=== PATIENT | male | born 1975 | race Caucasian/White ===

== ENCOUNTER → 2017-03-12 | Outpatient (CLI) | payer OTHER ==
--- NOTE | 2017-03-12 14:40 | DIAGNOSTIC IMAGING REPORT ---
RIGHT KNEE 3 VIEWS CLINICAL HISTORY: RIGHT KNEE PAIN Right pain COMPARISON: None. DISCUSSION: The bones and joint spaces appear intact. There is no evidence of fracture, dislocation or bony disease. Mild chondrocalcinosis. Small osteophyte projecting from the superior patella. IMPRESSION: Mild degenerative change. Chondrocalcinosis. Electronically signed by: Jamison Beckham M.D. 03/12/2017 2:39 PM Dictated Date/Time: 03/12/2017 2:38 PM
== END | disposition home or self-care (01) ==
LOC: C.RAD1850 14:22
PROVIDERS: ATTEND Nurse Practitioner Adult Health
DX: M25.561 Pain in right knee (principal)

== ENCOUNTER 2021-12-05 10:52 | Inpatient (IN) ==
[2021-12-05] MEDS ORDERED: SODIUM CHLORIDE 0.9% 500 ML IV STA (11:10)
[2021-12-05 11:29] LABS: Basophils # (auto) 0.03 K/uL (0-0.2); Basophils % (auto) 0.2 %; Eosinophils # (auto) 0.07 K/uL (0-0.5); Eosinophils % (auto) 0.4 %; Hematocrit (blood only) 47.3 % (42-52); Hemoglobin 16.4 g/dL (14.0-18.0); Immature Granulocytes # (auto) 0.06 K/uL (0.00-0.02); Immature Granulocytes % (auto) 0.3 %; Lymphocytes # (auto) 2.49 K/uL (1.2-3.4); Lymphocytes % (auto) 12.6 %; Mean Corpuscular Hgb Conc 34.7 g/dL (32-36); Mean Corpuscular Volume 92.4 fL (80-100); Mean Platelet Volume 10.1 fL (7.4-10.4); Monocytes # (auto) 1.35 K/uL (0.11-0.59); Monocytes % (auto) 6.8 %; Neutrophils # (auto) 15.71 K/uL (1.4-6.5); Neutrophils % (auto) 79.7 %; Platelet Count 223 K/uL (130-400); RDW Coefficient of Variation 13.4 % (11.5-14.5); RDW Standard Deviation 45.6 fL (36.4-46.3); Red Blood Count 5.12 M/uL (4.7-6.1); White Blood Count 19.71 K/uL (4.8-10.8)
--- NOTE | 2021-12-05 11:33 | Emergency Department Note ---
History of Present Illness General Chief complaint: Abdominal Pain Stated complaint: ABDOM PAIN Time Seen by Provider: 12/05/21 11:09 History of Present Illness Maximum Pain Intensity: 6 46-year-old male presents to the ED with a chief complaint of left lower quadrant abdominal pain. The symptoms started 6 PM yesterday evening and was gradual in onset and worsened through the day. The patient does state that he was shoveling snow earlier in the day. The patient states that his pain is constant and feels like he did 1000 sit ups. The patient states that it seems to be worse with cough and movement. Denies nausea, vomiting or diarrhea. No surgical history. Past Med/Surg History Social History Smoking Status: Current every day smoker Feels Safe at Home: Yes Review of Systems A total of 10 systems reviewed and were otherwise negative Physical Exam Vital Signs Vital Signs - 24 hr 12/05/21 10:59 12/05/21 11:12 12/05/21 11:23 Temperature 36.7 C Temperature Source Temporal Artery Scan Pulse Rate 101 H 96 H Pulse Rate from SpO2 Sensor 94 H Pulse Rhythm Regular Pulse Strength Normal Respiratory Rate 20 Respiratory Effort / Characteristics Non-Labored Spontaneous Respiratory Depth Normal Respiratory Pattern Regular Blood Pressure 131/86 Blood Pressure Mean 101 Blood Pressure Position Sitting Pulse Oximetry 97 96 97 Oxygen Delivery Method Room Air Room Air Oxygen Flow Rate 0 Sepsis Recent Fever Within 48 Hours No Sepsis New/Unexplained Change in Mental Status N/A Sepsis Action Taken by Nursing No Action Required 12/05/21 11:30 12/05/21 12:00 12/05/21 12:48 Temperature Temperature Source Pulse Rate 82 82 Pulse Rate from SpO2 Sensor 83 82 82 Pulse Rhythm Pulse Strength Respiratory Rate Respiratory Effort / Characteristics Respiratory Depth Respiratory Pattern Blood Pressure 133/90 143/95 H Blood Pressure Mean 104 111 Blood Pressure Position Pulse Oximetry 97 97 97 Oxygen Delivery Method Oxygen Flow Rate Sepsis Recent Fever Within 48 Hours Sepsis New/Unexplained Change in Mental Status Sepsis Action Taken by Nursing 12/05/21 12:51 12/05/21 13:00 Temperature Temperature Source Pulse Rate 82 Pulse Rate from SpO2 Sensor 82 81 Pulse Rhythm Pulse Strength Respiratory Rate Respiratory Effort / Characteristics Respiratory Depth Respiratory Pattern Blood Pressure 130/86 124/84 Blood Pressure Mean 100 97 Blood Pressure Position Pulse Oximetry 97 97 Oxygen Delivery Method Oxygen Flow Rate Sepsis Recent Fever Within 48 Hours Sepsis New/Unexplained Change in Mental Status Sepsis Action Taken by Nursing CONSTITUTIONAL/VITAL SIGNS: Reviewed / noted above. GENERAL: Non-toxic in appearance. INTEGUMENTARY: Warm, dry, and [place]. HEAD: Normocephalic. EYES: without scleral icterus or trauma. ENT/OROPHARYNX: clear and moist. LYMPHADENOPATHY/NECK: Is supple without lymphadenopathy or meningismus. RESPIRATORY: Clear to auscultation bilaterally. No increased work of breathing. CARDIOVASCULAR: Regular rate and rhythm. GI/ABDOMEN: Soft and tender in the bilateral lower abdomen left greater than right. Palpable hernia in the left inguinal region with increased intra- abdominal pressure reduces spontaneously. No organomegaly or pulsatile mass. EXTREMITIES: Warm and well perfused. BACK: No CVA tenderness. NEUROLOGICAL: Intact without focal deficits. PSYCHIATRIC: normal affect. MUSCULOSKELETAL: Normally developed with good muscle tone. TRIAGE NURSING DOCUMENTATION REVIEWED. Course Administered Medications Discontinued Medications Sodium Chloride (Nss) 500 mls @ 999 mls/hr IV .Q31M STA Stop: 12/05/21 11:40 Last Infusion: 12/05/21 12:22 Dose: 0 mls/hr Documented by: [id number] Admin: 12/05/21 11:18 Dose: 999 mls/hr Documented by: [id number] Piperacillin Sod/Tazobactam Sod (Zosyn) 4.5 gm in 120 mls @ 240 mls/hr IV NOW ONE Stop: 12/05/21 13:31 Last Admin: 12/05/21 13:11 Dose: 240 mls/hr Documented by: [id number] Ioversol (Optiray 320 100ml) 95 ml IV ONCE ONE Stop: 12/05/21 12:33 Last Admin: 12/05/21 12:32 Dose: 95 ml Documented by: [id number] Medical Decision Making Differential Diagnosis Differential considered: pancreatitis, hepatitis, acute cholecystitis, AAA, UTI, pyelonephritis, kidney stones, appendicitis, diverticulitis, shingles, bowel obstruction, mesenteric ischemia, intussusception,hernia, testicular torsion. Medical Records Attestation: I reviewed the patient's medical records. Home Medications Current Medication List: was personally reviewed by me Laboratory Data Attestation: I reviewed the patient's lab results. Result diagrams: 12/05/21 11:20 12/05/21 11:20 Lab Results 0312/05/21 12/05/21 Range/Units 11:20 11:20 13:00 WBC 19.71 H (4.8-10.8) K/uL RBC 5.12 (4.7-6.1) M/uL Hgb 16.4 (14.0-18.0) g/dL Hct 47.3 (42-52) % MCV 92.4 (80-100) fL MCH 32.0 (25-34) pg MCHC 34.7 (32-36) g/dL RDW Std Deviation 45.6 (36.4-46.3) fL RDW Coeff of Conrad 13.4 (11.5-14.5) % Plt Count 223 (130-400) K/uL MPV 10.1 (7.4-10.4) fL Immature Gran % (Auto) 0.3 % Neut % (Auto) 79.7 % Lymph % (Auto) 12.6 % Davison % (Auto) 6.8 % Eos % (Auto) 0.4 % Baso % (Auto) 0.2 % Neut # (Auto) 15.71 H (1.4-6.5) K/uL Lymph # (Auto) 2.49 (1.2-3.4) K/uL Davison # (Auto) 1.35 H (0.11-0.59) K/uL Eos # (Auto) 0.07 (0-0.5) K/uL Baso # (Auto) 0.03 (0-0.2) K/uL Immature Gran # (Auto) 0.06 H (0.00-0.02) K/uL Sodium 135 L (136-145) mmol/L Potassium 4.0 (3.5-5.1) mmol/L Chloride 103 (98-107) mmol/L Carbon Dioxide 26 (21-32) mmol/L Anion Gap 6 (3-11) BUN 11 (6-23) mg/dl Creatinine 0.79 (0.6-1.4) mg/dl Est Cr Clr Drug Dosing 131.0 ml/min Est GFR ( Amer) 124.8 ml/min Est GFR (Non-Af Amer) 107.7 ml/min BUN/Creatinine Ratio 13.9 (10-20) Glucose 101 H (70-99(Fasting)) mg/dl Calcium 9.4 (8.5-10.1) mg/dl Total Bilirubin 1.0 (0.2-1.0) mg/dl AST 15 (13-39) U/L ALT 24 (7-52) U/L Alkaline Phosphatase 55 (34-104) U/L Total Protein 6.9 (6.0-8.3) gm/dl Albumin 4.3 (3.4-5.0) gm/dl Globulin 2.6 (2.5-4.0) gm/dl Albumin/Globulin Ratio 1.7 (0.9-2) Lipase 14 (11-82) U/L Urine Color Yellow Urine Appearance Clear (Clear) Urine pH 6.5 (4.5-7.5) Ur Specific [place] 1.012 (1.000-1.030) Urine Protein Negative (Negative) Urine Glucose (UA) Negative (Negative) Urine Ketones Negative (Negative) Urine Blood Negative (Negative) Urine Nitrite Negative (Negative) Urine Bilirubin Negative (Negative) Urine Urobilinogen Negative (Negative) Ur Leukocyte Esterase Negative (Negative) SARS-CoV-2, RNA, NAAT (NEGATIVE) 12/05/21 Range/Units 13:26 WBC (4.8-10.8) K/uL RBC (4.7-6.1) M/uL Hgb (14.0-18.0) g/dL Hct (42-52) % MCV (80-100) fL MCH (25-34) pg MCHC (32-36) g/dL RDW Std Deviation (36.4-46.3) fL RDW Coeff of Conrad (11.5-14.5) % Plt Count (130-400) K/uL MPV (7.4-10.4) fL Immature Gran % (Auto) % Neut % (Auto) % Lymph % (Auto) % Davison % (Auto) % Eos % (Auto) % Baso % (Auto) % Neut # (Auto) (1.4-6.5) K/uL Lymph # (Auto) (1.2-3.4) K/uL Davison # (Auto) (0.11-0.59) K/uL Eos # (Auto) (0-0.5) K/uL Baso # (Auto) (0-0.2) K/uL Immature Gran # (Auto) (0.00-0.02) K/uL Sodium (136-145) mmol/L Potassium (3.5-5.1) mmol/L Chloride (98-107) mmol/L Carbon Dioxide (21-32) mmol/L Anion Gap (3-11) BUN (6-23) mg/dl Creatinine (0.6-1.4) mg/dl Est Cr Clr Drug Dosing ml/min Est GFR ( Amer) ml/min Est GFR (Non-Af Amer) ml/min BUN/Creatinine Ratio (10-20) Glucose (70-99(Fasting)) mg/dl Calcium (8.5-10.1) mg/dl Total Bilirubin (0.2-1.0) mg/dl AST (13-39) U/L ALT (7-52) U/L Alkaline Phosphatase (34-104) U/L Total Protein (6.0-8.3) gm/dl Albumin (3.4-5.0) gm/dl Globulin (2.5-4.0) gm/dl Albumin/Globulin Ratio (0.9-2) Lipase (11-82) U/L Urine Color Urine Appearance (Clear) Urine pH (4.5-7.5) Ur Specific [place] (1.000-1.030) Urine Protein (Negative) Urine Glucose (UA) (Negative) Urine Ketones (Negative) Urine Blood (Negative) Urine Nitrite (Negative) Urine Bilirubin (Negative) Urine Urobilinogen (Negative) Ur Leukocyte Esterase (Negative) SARS-CoV-2, RNA, NAAT NEGATIVE (NEGATIVE) Imaging Data Radiologist's Impression: Abdomen/Pelvis CT 12/05/21 11:10 CT abd pelvis IV con only CLINICAL HISTORY: llq pain TECHNIQUE: Helical axial images of the abdomen and pelvis were obtained and displayed. Automated dose lowering techniques and/or adjustment according to patient size were utilized for this exam. This exam was performed with intravenous contrast. COMPARISON: None available at the time of this dictation. FINDINGS: Lower chest: Bibasilar atelectasis versus scarring is seen. Liver: Unremarkable. No focal lesions are seen. Gallbladder and biliary tree: No calcified gallstones. Normal caliber wall. No intra- or extrahepatic biliary ductal dilation. Pancreas: Unremarkable, no focal lesions. Spleen: Splenule is incidentally noted. Adrenals: Unremarkable. Kidneys and ureters: Unremarkable. Bladder: Unremarkable. Reproductive organs: Unremarkable. Bowel: Diverticula are seen in the colon. There is fat stranding or wall thickening in the sigmoid colon. No surrounding abscess is seen, however there are foci of air in the surrounding peritoneal fat. Lymph nodes Retroperitoneal: Subcentimeter lymph nodes are noted. Mesenteric: Unremarkable. Pelvic: Unremarkable. Peritoneum: Apart from the focus in the left lower quadrant, there is no distant pneumoperitoneum. Vessels: Atherosclerotic calcifications are seen. Abdominal wall: Left fat containing inguinal hernia. A fat-containing umbilical hernia is seen. Bones: Degenerative changes in the visualized spine. IMPRESSION: Findings are compatible with acute perforated diverticulitis with foci of air contained within the left lower quadrant mesentery. ACT 112: Negative or not required by law. Electronically signed by: Kishan Holguin M.D. 12/05/2021 12:56 PM MDM Narrative Patient presents with left lower quadrant abdominal pain that started yesterday evening as detailed above. Exam reveals some tenderness in the pelvis and lower quadrants left greater than right. Does have a self reducing hernia in the left inguinal region. CT scan of the abdomen pelvis shows a perforated diverticulitis. White blood cell count is 19,000. Chemistry panel was unremarkable. The patient did not need anything for the pain. He was given some IV fluids and IV Zosyn. He will be seen by the hospitalist for further inpatient evaluation and care. I spoke with the hospitalist about the patient. They will see the patient for admission. I also spoke with Wayne Alicea from general surgery. They will consult. Impression & Plan Diverticulitis of colon with perforation Discharge Plan Visit Data Chief Complaint: Abdominal Pain Stated Complaint: ABDOM PAIN ED Provider: Hermelindo Mac Discharge Problem: Diverticulitis of colon with perforation Patient Disposition: Being Evaluated by Hospitalist Forms Stand Alone Forms: [facility] Referrals Referrals: PCP,NO [Physician] -
[2021-12-05 11:53] LABS: Albumin Globulin Ratio 1.7 (0.9-2); Albumin Level 4.3 gm/dl (3.4-5.0); BUN Creatinine Ratio 13.9 (10-20); Calcium 9.4 mg/dl (8.5-10.1); Est GFR (African American) 124.8 ml/min; Est GFR (Non-African American) 107.7 ml/min; Globulin 2.6 gm/dl (2.5-4.0); Total Protein 6.9 gm/dl (6.0-8.3)
[2021-12-05] MEDS ORDERED: OPTIRAY 320 100ml IV ONE (12:32)
--- NOTE | 2021-12-05 12:57 | CT Scan Report ---
CT abd pelvis IV con only CLINICAL HISTORY: llq pain TECHNIQUE: Helical axial images of the abdomen and pelvis were obtained and displayed. Automated dose lowering techniques and/or adjustment according to patient size were utilized for this exam. This e xam was performed with intravenous contrast. COMPARISON: None available at the time of this dictation. FINDINGS: Lower chest: Bibasilar atelectasis versus scarring is seen. Liver: Unremarkable. No focal lesions are seen. Gallbladder and biliary tree: No calcified gallstones. Normal caliber wall. No intra- or extrahepatic biliary ductal dilation. Pancreas: Unremarkable, no focal lesions. Spleen: Splenule is incidentally noted. Adrenals: Unremarkable. Kidneys and ureters: Unremarkable. Bladder: Unremarkable. Reproductive organs: Unremarkable. Bowel: Diverticula are seen in the colon. There is fat stranding or wall thickening in the sigmoid co katheryn. No surrounding abscess is seen, however there are foci of air in the surrounding peritoneal fat. Lymph nodes Retroperitoneal: Subcentimeter lymph nodes are noted. Mesenteric: Unremarkable. Pelvic: Unremarkable. Peritoneum: Apart from the focus in the left lower quadrant, there is no distant pneumoperitoneum. Vessels: Atherosclerotic calcifications are seen. Abdominal wall: Left fat containing inguinal hernia. A fat-containing umbilical hernia is seen. Bones: Degenerative changes in the visualized spine. IMPRESSION: Findings are compatible with acute perforated diverticulitis with foci of air contained within the le ft lower quadrant mesentery. ACT 112: Negative or not required by law. Electronically signed by: Kishan Holguin M.D. 12/05/2021 12:56 PM
[2021-12-05] MEDS ORDERED: PIPERACILLIN/TAZOBACTAM 4.5 GM/120 ML BAG IV ONE (13:02)
[2021-12-05] MEDS ORDERED: PIPERACILL/TAZOBAC CONSULT ACTIVE PRN ×2 (13:02→17:00)
[2021-12-05 13:22] LABS: Appearance Urine Clear (Clear); Bilirubin Urine Negative (Negative); Blood Urine Negative (Negative); Color Urine Yellow; Glucose Urine UA Negative (Negative); Ketones Urine Negative (Negative); Leukocyte Esterase Urine Negative (Negative); Nitrite Urine Negative (Negative); Protein Urine Negative (Negative); Specific Gravity Urine 1.012 (1.000-1.030); Urobilinogen Urine Negative (Negative); pH Urine 6.5 (4.5-7.5)
--- NOTE | 2021-12-05 14:13 | Surgery Consultation ---
Date of Consultation December 05, 2021 Assessment & Plan (1) Diverticulitis of colon with perforation: No acute abdominal findings. Agree with Zosyn, keep NPO for at least next 24 hours. Will continue to follow, hopefully can avoid surgery. History of Present Illness History of Present Illness 46 y/o male developed LLQ pain last evening rather acutely. No previous pain, bloating, surgery or diverticulitis. Pain continued this morning, came to ED. Had normal BM yesterday. No fevers or chills. Allergies Allergy/AdvReac Type Severity Reaction Status Date / Time No Known Allergies Allergy Verified 12/05/21 14:10 Home Medications Medication Instructions Recorded Confirmed Type atenolol 50 mg tablet 50 mg PO DAILY 12/05/21 12/05/21 History ibuprofen 200 mg tablet 400 mg PO QAM 12/05/21 12/05/21 History lisinopril 20 mg tablet 20 mg PO DAILY 12/05/21 12/05/21 History multivitamin 1 tab PO QAM 12/05/21 12/05/21 History Patient History Medical History HTN (hypertension) Tobacco abuse Surgical History History of open reduction and internal fixation (ORIF) procedure L ankle Family History Father Hypertension Diabetes Mother Hypertension Social History Smoking Status: Current every day smoker Tobacco Type: Cigarettes packs per day: 1; Years Smoked: 30; Do You Dip or Chew Tobacco: No; Tobacco Cessation Education Requested by Patient: No Hx Alcohol Use: Yes Alcohol type: beer Alcohol Intake Frequency: 2-3 x/Week Hx Substance Use: No Preferred Language: [place] marital status: Feels Safe at Home: Yes Review of Systems Constitutional: no fever, no chills, no malaise and no anorexia Respiratory: no cough and no dyspnea Cardiovascular: no chest pain and no chest pain with activity Gastrointestinal: + abdominal pain and + bloating; no nausea, no vomiting, no change in bowel habits, no change in stools, no constipation, no diarrhea/loose stools and no blood in stools Physical Exam Constitutional: WD/WN, vitals as above Respiratory: normal respiratory effort, lungs clear to auscultation Cardiovascular: RRR, no murmur, no edema Gastrointestinal (Abdomen): Inspection/Auscultation: + abdomen distended (slight) and + visible herniation (umbilical) Percussion/Palpation: + abdomen tender (LLQ), + guarding and abdomen soft Skin: no rashes, warm and dry Results & Data ([facility]) Vital Signs (Past 12 Hours) Vital Signs Temp Pulse Resp BP Pulse Ox 12/05/21 13:30 81 19 132/88 98 12/05/21 13:00 82 124/84 97 12/05/21 12:51 130/86 97 12/05/21 12:48 97 12/05/21 12:00 82 143/95 H 97 12/05/21 11:30 82 133/90 97 12/05/21 11:23 97 12/05/21 11:12 96 H 96 12/05/21 10:59 36.7 C 101 H 20 131/86 97 PG Care Time/CCT Total # of Minutes Spent Total Time Spent with Patient: Total time spent is greater than 50% in coordination of care (as documented) at patient's floor/unit and/or counseling patient: Coding Level of Care Code 17310 Office/OBS Consult Lvl 3 Diagnoses Diverticulitis of colon with perforation K57.20
--- NOTE | 2021-12-05 14:18 | History & Physical Report ---
Date of Service December 05, 2021 Assessment & Plan (1) Diverticulitis of colon with perforation: (2) HTN (hypertension): (3) Tobacco abuse: Plan: Acute sigmoid diverticulitis with perforation Left lower quadrant abdominal pain Leukocytosis Admit to medical General surgery Conservative measures with bowel rest, IV fluids Strict NPO IV morphine 4 mg every 4 hours as needed severe pain, avoid narcs as much as possible will schedule IV APAP while strict NPO will need OP colonoscopy in 6-8 weeks post infection HTN hold atenolol and lisinopril while strict NPO when starting clears will resume Tobacco abuse smoking cessation pt declines nicotine patch DVT ppx: SQ Lovenox Dispo: med/surg FULL CODE Pt was seen and examined in collaboration with Dr. Cruz, please see addendum Pt , Melody wishes to be called with updates if she is not at bedside due to patient having a hard time hearing. Melody #[phone] History of Present Illness Chief Complaint: LLQ abd pain x 1 day. Primary Care Provider: Jama Yadav MD This is a 46-year-old male who has significant past medical history of HTN and tobacco abuse who presents to ED secondary to abdominal pain x1 day. Last evening he was making supper when he developed left lower quadrant abdominal pain. Pain persistently worsened over the course of the night. He tried ibuprofen without relief. He has never had similar symptoms in the past. He denies any associated fever, nausea, vomiting, diarrhea, constipation, melena or hematochezia. He has never had a colonoscopy before. He states his bowel habits are usually not regular as he occasionally does have looser stool. He describes the pain as a, "deep ache." Pain gets worse with coughing or movement and is made better with with lying still. His is at bedside. He currently denies any associated fever, chills, sweats, lightheadedness, dizziness, syncope, chest pain, shortness of breath, URI symptoms, dysuria, increased urgency or frequency with urination, hematuria. He does admit to having Covid approximately 1 month ago. He was fully vaccinated boosted as well. In ED patient remained hemodynamically stable. He did have leukocytosis with WBC of 19.7 1K. His CMP was generally unremarkable. His urinalysis was negative. CT abdomen pelvis reveal acute perforated diverticulitis with foci of air contained within the left lower quadrant mesentery. He received IV fluids and IV Zosyn in ED. Patient's [facility] record in [facility] was reviewed. His home medication list was obtained through [facility]. His past medical history, surgical history and family history was also obtained through [facility]. Was confirmed with patient Allergies Allergy/AdvReac Type Severity Reaction Status Date / Time No Known Allergies Allergy Verified 12/05/21 14:10 Home Medications Medication Instructions Recorded Confirmed Type atenolol 50 mg tablet 50 mg PO DAILY 12/05/21 12/05/21 History ibuprofen 200 mg tablet 400 mg PO QAM 12/05/21 12/05/21 History lisinopril 20 mg tablet 20 mg PO DAILY 12/05/21 12/05/21 History multivitamin 1 tab PO QAM 12/05/21 12/05/21 History Past Med/Surg History Medical History HTN (hypertension) Tobacco abuse Surgical History History of open reduction and internal fixation (ORIF) procedure L ankle Family History Father Hypertension Diabetes Mother Hypertension Social History (Updated 12/05/21 @ 14:08 by Yvonne Holly PA-C) Smoking Status: Current every day smoker Tobacco Type: Cigarettes packs per day: 1; Years Smoked: 30; Do You Dip or Chew Tobacco: No; Tobacco Cessation Education Requested by Patient: No Hx Alcohol Use: Yes Alcohol type: beer Alcohol Intake Frequency: 2-3 x/Week Hx Substance Use: No Preferred Language: Sami marital status: Feels Safe at Home: Yes Review of Systems Review of Systems: All systems reviewed & are unremarkable except as noted in HPI & below Physical Exam Physical Exam: Constitutional: WD/WN, vitals as above, NAD, sitting up in bed, pleasant, conversing easily Head: Normocephalic, Atraumatic Eyes: PERRL, conjunctivae normal, anicteric sclerae ENMT: external ear and nose normal, oropharynx normal Neck: trachea midline, no thyromegaly normal visual inspection Respiratory: normal respiratory effort, lungs clear to auscultation, no wheeze, rales, rhonchi. Normal insp/exp effort, no accessory muscle use Cardiovascular: RRR, no murmur, no edema Vessels: no JVD or carotid bruit Chest: normal inspection of chest Abdomen: normal bowel sounds, soft, tender to light palpation left lower quadrant, positive rebound and guarding, no hepatosplenomegaly Musculoskeletal: no cyanosis or clubbing, extremities motor strength 5/5 Skin: no rashes, warm and dry normal turgor Neurologic: PERRL, EOMI, accommodation nl, no face palsy, no dysarthria CN's II-XI intact bilaterally and moves all extremities Psychiatric: A+Ox3, euthymic affect Lymphatic: no cervical or axillary lymphadenopathy : deferred Results & Data Results & Data ([facility]) Vital Signs (Past 12 Hours) Vital Signs Temp Pulse Resp BP Pulse Ox 12/05/21 13:30 81 19 132/88 98 12/05/21 13:00 82 124/84 97 12/05/21 12:51 130/86 97 12/05/21 12:48 97 12/05/21 12:00 82 143/95 H 97 12/05/21 11:30 82 133/90 97 12/05/21 11:23 97 12/05/21 11:12 96 H 96 12/05/21 10:59 36.7 C 101 H 20 131/86 97 Diagnostic Findings Abdomen/Pelvis CT 12/05/21 11:10 CT abd pelvis IV con only CLINICAL HISTORY: llq pain TECHNIQUE: Helical axial images of the abdomen and pelvis were obtained and displayed. Automated dose lowering techniques and/or adjustment according to patient size were utilized for this exam. This exam was performed with intravenous contrast. COMPARISON: None available at the time of this dictation. FINDINGS: Lower chest: Bibasilar atelectasis versus scarring is seen. Liver: Unremarkable. No focal lesions are seen. Gallbladder and biliary tree: No calcified gallstones. Normal caliber wall. No intra- or extrahepatic biliary ductal dilation. Pancreas: Unremarkable, no focal lesions. Spleen: Splenule is incidentally noted. Adrenals: Unremarkable. Kidneys and ureters: Unremarkable. Bladder: Unremarkable. Reproductive organs: Unremarkable. Bowel: Diverticula are seen in the colon. There is fat stranding or wall thickening in the sigmoid colon. No surrounding abscess is seen, however there are foci of air in the surrounding peritoneal fat. Lymph nodes Retroperitoneal: Subcentimeter lymph nodes are noted. Mesenteric: Unremarkable. Pelvic: Unremarkable. Peritoneum: Apart from the focus in the left lower quadrant, there is no distant pneumoperitoneum. Vessels: Atherosclerotic calcifications are seen. Abdominal wall: Left fat containing inguinal hernia. A fat-containing umbilical hernia is seen. Bones: Degenerative changes in the visualized spine. IMPRESSION: Findings are compatible with acute perforated diverticulitis with foci of air contained within the left lower quadrant mesentery. ACT 112: Negative or not required by law. Electronically signed by: Kishan Holguin M.D. 12/05/2021 12:56 PM Medications Administered Medication List Discontinued Medications Sodium Chloride (Nss) 500 mls @ 999 mls/hr IV .Q31M STA Stop: 12/05/21 11:40 Last Infusion: 12/05/21 12:22 Dose: 0 mls/hr Documented by: [id number] Admin: 12/05/21 11:18 Dose: 999 mls/hr Documented by: [id number] Piperacillin Sod/Tazobactam Sod (Zosyn) 4.5 gm in 120 mls @ 240 mls/hr IV NOW ONE Stop: 12/05/21 13:31 Last Admin: 12/05/21 13:11 Dose: 240 mls/hr Documented by: [id number] Ioversol (Optiray 320 100ml) 95 ml IV ONCE ONE Stop: 12/05/21 12:33 Last Admin: 12/05/21 12:32 Dose: 95 ml Documented by: [id number] COVID-19 Results Results COVID-19 Adm Lab Results: RBC 5.12 M/uL (4.7-6.1) 12/05/21 WBC 19.71 K/uL (4.8-10.8) H 12/05/21 Hgb 16.4 g/dL (14.0-18.0) 12/05/21 Hct 47.3 % (42-52) 12/05/21 Plt Count 223 K/uL (130-400) 12/05/21 Neutrophils (%) (Auto) 79.7 % 12/05/21 Lymphocytes (%) (Auto) 12.6 % 12/05/21 Monocytes # (Auto) 1.35 K/uL (0.11-0.59) H 12/05/21 Eosinophils # (Auto) 0.07 K/uL (0-0.5) 12/05/21 Immature Granulocyte % (Auto) 0.3 % 12/05/21 Neutrophils # (Auto) 15.71 K/uL (1.4-6.5) H 12/05/21 Lymphocytes # (Auto) 2.49 K/uL (1.2-3.4) 12/05/21 Monocytes # (Auto) 1.35 K/uL (0.11-0.59) H 12/05/21 Eosinophils # (Auto) 0.07 K/uL (0-0.5) 12/05/21 Basophils # (Auto) 0.03 K/uL (0-0.2) 12/05/21 Immature Granulocyte # (Auto) 0.06 K/uL (0.00-0.02) H 12/05/21 Na 135 mmol/L (136-145) L 12/05/21 K 4.0 mmol/L (3.5-5.1) 12/05/21 Cl 103 mmol/L (98-107) 12/05/21 CO2 26 mmol/L (21-32) 12/05/21 Anion Gap 6 (3-11) 12/05/21 BUN 11 mg/dl (6-23) 12/05/21 Creatinine 0.79 mg/dl (0.6-1.4) 12/05/21 BUN/Creatinine Ratio 13.9 (10-20) 12/05/21 Glucose Level 101 mg/dl (70-99(Fasting)) H 12/05/21 Ca 9.4 mg/dl (8.5-10.1) 12/05/21 Total Bilirubin 1.0 mg/dl (0.2-1.0) 12/05/21 AST/SGOT 15 U/L (13-39) 12/05/21 ALT/SGPT 24 U/L (7-52) 12/05/21 Alkaline Phosphatase 55 U/L (34-104) 12/05/21 Total Protein 6.9 gm/dl (6.0-8.3) 12/05/21 Albumin 4.3 gm/dl (3.4-5.0) 12/05/21 Globulin 2.6 gm/dl (2.5-4.0) 12/05/21 Albumin/Globulin Ratio 1.7 (0.9-2) 12/05/21 SARS-CoV-2, RNA, NAAT NEGATIVE (NEGATIVE) 12/05/21 Code Status & VTE Plan Code Status FULL CODE VTE Prophylaxis Plan VTE Prophylaxis will be ordered: Yes Supervising Physician Co-Signing Physician Notes Attending addendum The patient was seen and examined in emergency room in presence of the He has been complaining of severe abdominal pain since last night Has had feverish feeling with some abdominal discomfort before severe pain Has been complaining of pain in the emergency room and the pain is worse with movement and with coughing On examination Lying in with bed very anxious Hemodynamically stable Chestclear to auscultate bilaterally HeartS1-S2, regular Abdomendistended, soft, mildly tender all over and tenderness with guarding and rigidity involving the left lower quadrant Extremitiesnegative for any edema CNSalert, awake and oriented x3 His admission labs, EKG and imaging studies reviewed Has perforated sigmoid diverticulitis Surgery consulted and recommended conservative management for now Intravenous antibiotics have been started Agree with assessment and plan as outlined above by Yvonne cruz
[2021-12-05] MEDS ORDERED: MoRPHine SULFATE 2 MG/ML CARP ONE (15:24)
[2021-12-05] MEDS ORDERED: ONDANSETRON INJ 2 MG/ML 2 ML VIAL IV PRN (17:00)
[2021-12-05] MEDS ORDERED: MoRPHine SULFATE 4 MG/ML 1 ML CARP\\VIAL IV PRN (17:00)
[2021-12-05] MEDS: LACTATED RINGER'S 1,000 ML IV SCH (17:13)
[2021-12-05] MEDS: ACETAMINOPHEN 1,000 MG/100 ML VIAL IV SCH (17:45)
[2021-12-05] MEDS: PIPERACILLIN/TAZOBACTAM 3.375 GM in DEXTROSE 5% 100 ML IV SCH (18:14)
[2021-12-05] MEDS ORDERED: Flu Vaccine (Fluarix) 0.5mL SYR (Standard Dose) IM ONE (18:45)
[2021-12-06] MEDS: LACTATED RINGER'S 1,000 ML IV SCH ×3 (01:31→17:42)
[2021-12-06] MEDS: PIPERACILLIN/TAZOBACTAM 3.375 GM in DEXTROSE 5% 100 ML IV SCH ×3 (01:31→17:44)
[2021-12-06] MEDS: ACETAMINOPHEN 1,000 MG/100 ML VIAL IV SCH ×3 (01:31→17:40)
[2021-12-06 06:26] LABS: Basophils # (auto) 0.02 K/uL (0-0.2); Basophils % (auto) 0.2 %; Eosinophils # (auto) 0.12 K/uL (0-0.5); Hematocrit (blood only) 43.9 % (42-52); Hemoglobin 14.8 g/dL (14.0-18.0); Immature Granulocytes # (auto) 0.02 K/uL (0.00-0.02); Immature Granulocytes % (auto) 0.2 %; Lymphocytes # (auto) 2.44 K/uL (1.2-3.4); Mean Corpuscular Hemoglobin 31.8 pg (25-34); Mean Corpuscular Hgb Conc 33.7 g/dL (32-36); Mean Corpuscular Volume 94.2 fL (80-100); Mean Platelet Volume 10.2 fL (7.4-10.4); Monocytes # (auto) 0.88 K/uL (0.11-0.59); Monocytes % (auto) 7.2 %; Neutrophils # (auto) 8.73 K/uL (1.4-6.5); Neutrophils % (auto) 71.4 %; Platelet Count 184 K/uL (130-400); RDW Coefficient of Variation 13.8 % (11.5-14.5); RDW Standard Deviation 47.4 fL (36.4-46.3); Red Blood Count 4.66 M/uL (4.7-6.1); White Blood Count 12.21 K/uL (4.8-10.8)
[2021-12-06 07:16] LABS: Albumin Globulin Ratio 1.4 (0.9-2); Albumin Level 3.6 gm/dl (3.4-5.0); Calcium 8.9 mg/dl (8.5-10.1); Creatinine Clr Calc Pharmacy 114.9 ml/min; Est GFR (African American) 118.3 ml/min; Est GFR (Non-African American) 102.1 ml/min; Globulin 2.5 gm/dl (2.5-4.0); Magnesium 2.1 mg/dl (1.7-2.4); Potassium 3.8 mmol/L (3.5-5.1); Total Protein 6.1 gm/dl (6.0-8.3)
--- NOTE | 2021-12-06 10:16 | Surgery Progress Note ---
Date of Service December 06, 2021 Assessment & Plan (1) Diverticulitis of colon with perforation: Plan: conservative management for now. improving. wbc improving. afebrile. continue NPO another [address] Ferguson covering for weekend. (2) HTN (hypertension): (3) Tobacco abuse: Admission and Anticipated Discharge Date Admission Date: December 05, 2021 Subjective pt seen. feeling somewhat better than yesterday. no new complaints. Physical Exam Constitutional: WD/WN, vitals as above no acute distress and not ill appearing Eyes: PERRL, conjunctivae normal, anicteric sclerae EOM intact bilaterally ENMT: external ear and nose normal, oropharynx normal Ears: no hearing impairment Neck: trachea midline, no thyromegaly Respiratory: normal respiratory effort; no respiratory distress and does not use accessory muscles Cardiovascular: Rate/Rhythm: regular rate and regular rhythm Gastrointestinal (Abdomen): soft. +LLQ ttp. +left inguinal hernia. +umbilical hernia. no peritoneal signs. Skin: no rashes, warm and dry Psychiatric: Orientation: alert, oriented x 3 and cooperative Results & Data ([facility]) Vital Signs (Past 12 Hours) Vital Signs Temp Pulse Pulse Resp BP Pulse Ox 12/06/21 07:45 36.8 C 83 16 138/88 93 12/05/21 22:38 37.0 C 82 15 120/78 92 PG Care Time/CCT Total # of Minutes Spent Total Time Spent with Patient: Total time spent is greater than 50% in coordination of care (as documented) at patient's floor/unit and/or counseling patient: Coding Level of Care Code 93430 Subseq Hosp Care Lvl 3 Diagnoses Diverticulitis of colon with perforation K57.20 HTN (hypertension) I10 Tobacco abuse Z72.0
--- NOTE | 2021-12-06 14:37 | Hospitalist Progress Note ---
Date of Service December 06, 2021 Assessment & Plan (1) Diverticulitis of colon with perforation: (2) HTN (hypertension): (3) Tobacco abuse: Plan: Acute sigmoid diverticulitis with perforation --CT ABD:indings are compatible with acute perforated diverticulitis with foci of air contained within the left lower quadrant mesentery. Continue IV Zosyn, IV fluids N.p.o. for now Appreciate surgery input Pain control HTN hold atenolol and lisinopril while NPO Monitor BP Tobacco abuse smoking cessation pt declines nicotine patch DVT px: SQ Lovenox Code Status FULL CODE Admission and Anticipated Discharge Date Admission Date: December 05, 2021 Subjective Seen and examined at bedside States having abdominal pain which is controlled with meds Denies any nausea, vomiting, chest pain, shortness breath, dizziness Offers no other complaints Review of Systems 2 Review of Systems: All systems reviewed & are unremarkable except as noted in Subjective Physical Exam Physical Exam: Physical Exam: Vitals signs as noted above General Appearance:Moderately built and nourished, no apparent distress Head: normocephalic, Atraumatic Eyes: normal inspection, EOMI Neck: supple, Trachea midline Respiratory/Chest: Normal breath sounds, CTA, No accessory muscle use Cardiovascular: S1, S2, No murmur Abdomen/GI:Soft, left lower quadrant tender, left inguinal hernia, Bowel sounds present Extremities/Musculoskeletal:normal inspection, no edema Neurologic/Psych:AAOX3, grossly no focal neurological deficits Skin: normal color, warm Results & Data Results & Data ([facility]) Vital Signs (Past 12 Hours) Vital Signs Temp Pulse Resp BP Pulse Ox 12/06/21 07:45 36.8 C 83 16 138/88 93 Laboratory Results Short CBC 12/06/21 Range/Units 05:49 WBC 12.21 H (4.8-10.8) K/uL Hgb 14.8 (14.0-18.0) g/dL Hct 43.9 (42-52) % Plt Count 184 (130-400) K/uL BMP 12/06/21 05:49 Sodium 137 Potassium 3.8 Chloride 104 Carbon Dioxide 29 BUN 9 Creatinine 0.90 Glucose 97 Calcium 8.9 Liver Function 12/06/21 Range/Units 05:49 Total Bilirubin 1.0 (0.2-1.0) mg/dl AST 10 L (13-39) U/L ALT 15 (7-52) U/L Alkaline Phosphatase 44 (34-104) U/L Albumin 3.6 (3.4-5.0) gm/dl
[2021-12-07] MEDS: PIPERACILLIN/TAZOBACTAM 3.375 GM in DEXTROSE 5% 100 ML IV SCH ×3 (01:19→17:11)
[2021-12-07] MEDS: ACETAMINOPHEN 1,000 MG/100 ML VIAL IV SCH ×3 (01:20→17:10)
[2021-12-07] MEDS: LACTATED RINGER'S 1,000 ML IV SCH ×3 (05:40→15:58)
[2021-12-07 07:18] LABS: Basophils # (auto) 0.03 K/uL (0-0.2); Basophils % (auto) 0.2 %; Eosinophils # (auto) 0.14 K/uL (0-0.5); Eosinophils % (auto) 1.1 %; Hematocrit (blood only) 44.3 % (42-52); Immature Granulocytes # (auto) 0.04 K/uL (0.00-0.02); Immature Granulocytes % (auto) 0.3 %; Lymphocytes # (auto) 1.86 K/uL (1.2-3.4); Lymphocytes % (auto) 15.2 %; Mean Corpuscular Hgb Conc 33.9 g/dL (32-36); Mean Corpuscular Volume 94.5 fL (80-100); Mean Platelet Volume 10.2 fL (7.4-10.4); Monocytes # (auto) 0.88 K/uL (0.11-0.59); Monocytes % (auto) 7.2 %; Neutrophils # (auto) 9.25 K/uL (1.4-6.5); Platelet Count 206 K/uL (130-400); RDW Coefficient of Variation 13.5 % (11.5-14.5); RDW Standard Deviation 46.9 fL (36.4-46.3); Red Blood Count 4.69 M/uL (4.7-6.1)
[2021-12-07 07:45] LABS: Albumin Globulin Ratio 1.4 (0.9-2); Albumin Level 3.7 gm/dl (3.4-5.0); BUN Creatinine Ratio 10.7 (10-20); Bilirubin,Total 0.9 mg/dl (0.2-1.0); Calcium 8.1 mg/dl (8.5-10.1); Creatinine Clr Calc Pharmacy 137.9 ml/min; Est GFR (African American) 127.5 ml/min; Globulin 2.6 gm/dl (2.5-4.0); Potassium 3.8 mmol/L (3.5-5.1); Total Protein 6.3 gm/dl (6.0-8.3)
--- NOTE | 2021-12-07 10:53 | Surgery Progress Note ---
Date of Service December 07, 2021 Assessment & Plan (1) Diverticulitis of colon with perforation: Plan: wbc stable at 12, afebrile. can start clears, decrease IVF continue Zosyn seen with Dr. Ferguson (2) HTN (hypertension): (3) Tobacco abuse: Admission and Anticipated Discharge Date Admission Date: December 05, 2021 Subjective some flatus, no BM, less pain Physical Exam Gastrointestinal (Abdomen): Inspection/Auscultation: abdomen not distended Percussion/Palpation: + abdomen tender (mild LLQ) and abdomen soft; no guarding Results & Data ([facility]) Vital Signs (Past 12 Hours) Vital Signs Temp Pulse Resp BP Pulse Ox 12/07/21 07:31 36.7 C 88 18 150/96 H 96 PG Care Time/CCT Total # of Minutes Spent Total Time Spent with Patient: Total time spent is greater than 50% in coordination of care (as documented) at patient's floor/unit and/or counseling patient: Coding Level of Care Code 42843 Subseq Hosp Care Lvl 1 Diagnoses Diverticulitis of colon with perforation K57.20 HTN (hypertension) I10 Tobacco abuse Z72.0
--- NOTE | 2021-12-07 16:12 | Hospitalist Progress Note ---
Date of Service December 07, 2021 Assessment & Plan (1) Diverticulitis of colon with perforation: (2) HTN (hypertension): (3) Tobacco abuse: Plan: Acute sigmoid diverticulitis with perforation --CT ABD:indings are compatible with acute perforated diverticulitis with foci of air contained within the left lower quadrant mesentery. Continue IV Zosyn, IV fluids Appreciate surgery input Pain control Started on clear liquid diet HTN Resume atenolol and lisinopril Monitor BP Tobacco abuse smoking cessation pt declines nicotine patch DVT px: SQ Lovenox Code Status FULL CODE Admission and Anticipated Discharge Date Admission Date: December 05, 2021 Subjective Patient is seen and examined at bedside Abdominal pain slowly improving Tolerating clear liquid diet Denies any nausea, vomiting, chest pain, shortness breath, dizziness No other complaints Review of Systems Review of Systems: All systems reviewed & are unremarkable except as noted in Subjective Physical Exam Physical Exam: Physical Exam: Vitals signs as noted above General Appearance:Moderately built and nourished, no apparent distress Head: normocephalic, Atraumatic Eyes: normal inspection, EOMI Neck: supple, Trachea midline Respiratory/Chest: Normal breath sounds, CTA, No accessory muscle use Cardiovascular: S1, S2, No murmur Abdomen/GI:Soft, left lower quadrant mild tender, left inguinal hernia, Bowel sounds present Extremities/Musculoskeletal:normal inspection, no edema Neurologic/Psych:AAOX3, grossly no focal neurological deficits Skin: normal color, warm Results & Data Results & Data ([facility]) Vital Signs (Past 12 Hours) Vital Signs Temp Pulse Resp BP Pulse Ox 12/07/21 07:31 36.7 C 88 18 150/96 H 96 Laboratory Results Short CBC 12/07/21 Range/Units 06:45 WBC 12.20 H (4.8-10.8) K/uL Hgb 15.0 (14.0-18.0) g/dL Hct 44.3 (42-52) % Plt Count 206 (130-400) K/uL BMP 12/07/21 06:45 Sodium 137 Potassium 3.8 Chloride 103 Carbon Dioxide 26 BUN 8 Creatinine 0.75 Glucose 81 Calcium 8.1 L Liver Function 12/07/21 Range/Units 06:45 Total Bilirubin 0.9 (0.2-1.0) mg/dl AST 11 L (13-39) U/L ALT 15 (7-52) U/L Alkaline Phosphatase 48 (34-104) U/L Albumin 3.7 (3.4-5.0) gm/dl
[2021-12-07] MEDS: lisinopril 20 MG TAB PO SCH (17:35)
[2021-12-07] MEDS: ATENOLOL 50 MG TABLET PO SCH (17:35)
[2021-12-08] MEDS: PIPERACILLIN/TAZOBACTAM 3.375 GM in DEXTROSE 5% 100 ML IV SCH ×2 (04:01→09:31)
[2021-12-08] MEDS: ACETAMINOPHEN 1,000 MG/100 ML VIAL IV SCH ×2 (04:02→09:32)
[2021-12-08] MEDS ORDERED: COUGH DROP (SUGAR FREE) LOZ 24 LOZ/1 BOX BUCCAL ONE (04:10)
[2021-12-08 05:46] LABS: Basophils # (auto) 0.02 K/uL (0-0.2); Basophils % (auto) 0.2 %; Eosinophils # (auto) 0.25 K/uL (0-0.5); Eosinophils % (auto) 2.7 %; Hematocrit (blood only) 40.5 % (42-52); Hemoglobin 13.8 g/dL (14.0-18.0); Immature Granulocytes # (auto) 0.02 K/uL (0.00-0.02); Immature Granulocytes % (auto) 0.2 %; Lymphocytes # (auto) 2.09 K/uL (1.2-3.4); Lymphocytes % (auto) 22.8 %; Mean Corpuscular Hemoglobin 31.9 pg (25-34); Mean Corpuscular Hgb Conc 34.1 g/dL (32-36); Mean Corpuscular Volume 93.5 fL (80-100); Monocytes # (auto) 0.84 K/uL (0.11-0.59); Monocytes % (auto) 9.2 %; Neutrophils # (auto) 5.94 K/uL (1.4-6.5); Neutrophils % (auto) 64.9 %; Platelet Count 237 K/uL (130-400); RDW Coefficient of Variation 13.3 % (11.5-14.5); Red Blood Count 4.33 M/uL (4.7-6.1); White Blood Count 9.16 K/uL (4.8-10.8)
[2021-12-08] MEDS: LACTATED RINGER'S 1,000 ML IV SCH (05:52)
[2021-12-08 06:12] LABS: BUN Creatinine Ratio 7.5 (10-20); Calcium 8.8 mg/dl (8.5-10.1); Creatinine Clr Calc Pharmacy 154.4 ml/min; Est GFR (African American) 133.6 ml/min; Est GFR (Non-African American) 115.2 ml/min
[2021-12-08] MEDS: ATENOLOL 50 MG TABLET PO SCH (08:13)
[2021-12-08] MEDS: lisinopril 20 MG TAB PO SCH (08:13)
--- NOTE | 2021-12-08 09:17 | Surgery Progress Note ---
Date of Service December 08, 2021 Assessment & Plan (1) Diverticulitis of colon with perforation: Plan: Patient feeling better WBC 9(12); afebrile Pain improving. Tolerating clears. + BM's May advance to low fiber...would continue on a low fiber diet until bowels normalize Recommend colonoscopy in 6-8 weeks as outpatient May f/u with Dr. Yu in clinic within next week or two Would complete a course of abx, at least 7 more days, recommend po cipro/flagyl Pt may be discharged from our standpoint pending medicine clearance Pt seen/examined with Dr. Ferguson Admission and Anticipated Discharge Date Admission Date: December 05, 2021 Subjective Patient feels better, but still having some mild pain rating it at a 4. Having + loose BM's. Physical Exam Physical Exam: awake/alert Gastrointestinal (Abdomen): Percussion/Palpation: abdomen soft Results & Data ([facility]) Vital Signs (Past 12 Hours) Vital Signs Temp Pulse Resp BP Pulse Ox 12/08/21 07:21 36.8 C 71 18 147/90 H 97 12/07/21 22:16 36.8 C 85 17 131/86 98 PG Care Time/CCT Total # of Minutes Spent Total Time Spent with Patient: Total time spent is greater than 50% in coordination of care (as documented) at patient's floor/unit and/or counseling patient: Coding Level of Care Code 17928 Subseq Hosp Care Lvl 1 Diagnoses Diverticulitis of colon with perforation K57.20
[2021-12-08] MEDS ORDERED: MoRPHine SULFATE 2 MG/ML CARP IV PRN (09:58)
--- NOTE | 2021-12-08 12:54 | Hospitalist Progress Note ---
Date of Service December 08, 2021 Assessment & Plan (1) Diverticulitis of colon with perforation: (2) HTN (hypertension): (3) Tobacco abuse: Plan: Acute sigmoid diverticulitis with perforation --CT ABD:Findings are compatible with acute perforated diverticulitis with foci of air contained within the left lower quadrant mesentery. Continue IV Zosyn, IV fluids Appreciate surgery input Pain control Advanced to low fiber diet Plan to discharge on Ciprofloxacin and flagyl to complete the antibiotic course Needs colonoscopy in 6 to 8 weeks as outpatient Needs follow-up with surgery upon discharge HTN Continue atenolol and lisinopril Monitor BP Tobacco abuse smoking cessation pt declines nicotine patch DVT px: SQ Lovenox Code Status FULL CODE Admission and Anticipated Discharge Date Admission Date: December 05, 2021 Subjective Patient is seen and examined at bedside No new complaints Minimal abd discomfort Tolerates diet Denies any nausea, vomiting, chest pain, shortness breath, dizziness Plan to discharge home today Review of Systems Review of Systems: All systems reviewed & are unremarkable except as noted in Subjective Physical Exam Physical Exam: Physical Exam: Vitals signs as noted above General Appearance:Moderately built and nourished, no apparent distress Head: normocephalic, Atraumatic Eyes: normal inspection, EOMI Neck: supple, Trachea midline Respiratory/Chest: Normal breath sounds, CTA, No accessory muscle use Cardiovascular: S1, S2, No murmur Abdomen/GI:Soft, left lower quadrant mild tender, left inguinal hernia, Bowel sounds present Extremities/Musculoskeletal:normal inspection, no edema Neurologic/Psych:AAOX3, grossly no focal neurological deficits Skin: normal color, warm Results & Data Results & Data ([facility]) Vital Signs (Past 12 Hours) Vital Signs Temp Pulse Resp BP Pulse Ox 12/08/21 07:21 36.8 C 71 18 147/90 H 97 Laboratory Results Short CBC 12/08/21 Range/Units 05:17 WBC 9.16 (4.8-10.8) K/uL Hgb 13.8 L (14.0-18.0) g/dL Hct 40.5 L (42-52) % Plt Count 237 (130-400) K/uL BMP 12/08/21 05:17 Sodium 140 Potassium 4.0 Chloride 106 Carbon Dioxide 28 BUN 5 L Creatinine 0.67 Glucose 106 H Calcium 8.8
--- NOTE | 2021-12-08 13:02 | Discharge Summary ---
Date of Service December 08, 2021 Admission HPI Per Admitting Provider This is a 46-year-old male who has significant past medical history of HTN and tobacco abuse who presents to ED secondary to abdominal pain x1 day. Last evening he was making supper when he developed left lower quadrant abdominal pain. Pain persistently worsened over the course of the night. He tried ibuprofen without relief. He has never had similar symptoms in the past. He denies any associated fever, nausea, vomiting, diarrhea, constipation, melena or hematochezia. He has never had a colonoscopy before. He states his bowel habits are usually not regular as he occasionally does have looser stool. He de scribes the pain as a, "deep ache." Pain gets worse with coughing or movement and is made better with with lying still. His is at bedside. He currently denies any associated fever, chills, sweats, lightheadedness, dizziness, syncope, chest pain, shortness of breath, URI symptoms, dysuria, increased urgency or frequency with urination, hematuria. He does admit to having Covid approximately 1 month ago. He was fully vaccinated boosted as well. In ED patient remained hemodynamically stable. He did have leukocytosis with WBC of 19.7 1K. His CMP was generally unremarkable. His urinalysis was negative. CT abdomen pelvis reveal acute perforated diverticulitis with foci of air contained within the left lower quadrant mesentery. He received IV fluids and IV Zosyn in ED. [facility]. His home medication list was obtained through [facility]. His past medical history, surgical history and family history was also obtained through [facility]. Was confirmed with patient Admission Exam Per Admitting Provider Physical Exam Physical Exam: Constitutional: WD/WN, vitals as above, NAD, sitting up in bed, pleasant, conversing easily Head: Normocephalic, Atraumatic Eyes: PERRL, conjunctivae normal, anicteric sclerae ENMT: external ear and nose normal, oropharynx normal Neck: trachea midline, no thyromegaly normal visual inspection Respiratory: normal respiratory effort, lungs clear to auscultation, no wheeze, rales, rhonchi. Normal insp/exp effort, no accessory muscle use Cardiovascular: RRR, no murmur, no edema Vessels: no JVD or carotid bruit Chest: normal inspection of chest Abdomen: normal bowel sounds, soft, tender to light palpation left lower quadrant, positive rebound and guarding, no hepatosplenomegaly Musculoskeletal: no cyanosis or clubbing, extremities motor strength 5/5 Skin: no rashes, warm and dry normal turgor Neurologic: PERRL, EOMI, accommodation nl, no face palsy, no dysarthria CN's II-XI intact bilaterally and moves all extremities Psychiatric: A+Ox3, euthymic affect Lymphatic: no cervical or axillary lymphadenopathy : deferred Principal Diagnosis Acute sigmoid diverticulitis with perforation Discharge Data Allergies Allergy/AdvReac Type Severity Reaction Status Date / Time No Known Allergies Allergy Verified 12/05/21 14:10 Consultations 12/05/21 13:10 ED Decision to Admit Stat 12/05/21 13:13 Consult General Surgery Routine Ordered Studies 12/05/21 11:10 CT abd pelvis IV con only Stat Hospital Course (1) Diverticulitis of colon with perforation: (2) HTN (hypertension): (3) Tobacco abuse: Acute sigmoid diverticulitis with perforation --CT ABD:Findings are compatible with acute perforated diverticulitis with foci of air contained within the left lower quadrant mesentery. Continue IV Zosyn, IV fluids Appreciate surgery input Pain control Advanced to low fiber diet Plan to discharge on Ciprofloxacin and flagyl to complete the antibiotic course Needs colonoscopy in 6 to 8 weeks as outpatient Needs follow-up with surgery upon discharge HTN Continue atenolol and lisinopril Monitor BP Tobacco abuse smoking cessation pt declines nicotine patch DVT px: SQ Lovenox Code Status FULL CODE Total Time Total Time Spent Total Time Spent (In Minutes): 44 minutes Discharge Plan Discharge Items Patient Disposition: Home - Self-Care Reason For Visit: ACUTE PERFORATED DIVERTICULITIS Discharge Diagnosis: Acute sigmoid diverticulitis with perforation Activity: Per Instructions section Exercise/Sports: Wait until after follow-up appointment Non-emergency contact: Primary Care Provider and Surgeon Call non-emergency contact if: you have any medication questions, your symptoms worsen, your pain is concerning for you and you have a fever Follow-up/Referrals: Jama Yadav MD [Primary Care Provider] - Diet: Low Fiber Addtl Attending Provider Instructions: Follow-up with your primary care physician Dr. Yadav in 1 week Follow-up with your surgeon in 1-2 weeks as recommended --Get Colonoscopy in 6-8 weeks as outpatient --Complete ciprofloxacin and metronidazole as prescribed to complete the course. Seek immediate medical attention if your symptoms reoccur or worsen Please take all medications as instructed on discharge list below. Please call if you have any questions or problems. You can reach a [facility] hospitalist on duty at [facility] 24 hours a day by calling [phone] Pending Studies at Discharge: No Stand-Alone Forms: My [facility], Smoking Cessation Medications and DC Order Prescriptions: New ciprofloxacin HCl 500 mg tablet 500 mg PO BID Qty: 14 RF: 0 metronidazole 500 mg tablet 500 mg PO Q8H 7 Days Qty: 21 RF: 0 Continued multivitamin [One A Day] Tablet 1 tab PO QAM RF: 0 lisinopril 20 mg tablet 20 mg PO DAILY RF: 0 atenolol 50 mg tablet 50 mg PO DAILY RF: 0 Changed ibuprofen 200 mg Tablet 400 mg PO QAM PRN (Reason: Pain) Qty: 0 RF: 0 Discharge Orders: Discharge Order (Routine); Ordered 12/08/21 Ordered By: Dandy Duggan/Other Patient Handouts: Low-Fiber Diet, Diverticulosis and Diverticulitis, Anatomy of the Digestive System, How the Colon Works Admission Data Admit Date/Time: 12/05/21 13:13 Attending Provider: Dandy Cohn Admit Provider: Paola Garcia Primary Care Provider: Jama Yadav Other Providers: Luis Carlos Yu ; Paola Garcia
== END 2021-12-08 15:55 | disposition home or self-care (01) | DRG 392 ==
LOC: ED 10:52 → 3W 13:13 → SUATTDRO 13:13 → 3W 16:45